=== PATIENT | female | born 1960 | race Hispanic/Latino ===

== ENCOUNTER 2017-11-12 13:39 | Emergency (ER) | payer OTHER, BC ==
[2017-11-12 13:46] VITALS: O2SAT 98
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
[2017-11-12 14:23] VITALS: BP 138/89; PULSE 87; RESP 18; TEMP 98
== END 2017-11-12 14:33 | disposition home or self-care (01) ==
LOC: H.ER 13:39
DX: M54.2 Cervicalgia (principal); V89.2XXA Person injured in unspecified motor-vehicle accident, traffic, initial encounter